=== PATIENT | male | born 1990 | race Caucasian/White ===

== ENCOUNTER 2018-01-10 02:45 | Emergency (ER) | payer BC ==
[2018-01-10] MEDS ORDERED: Ondansetron 4 MG/2 ML SDV IVPUSH STA (02:56)
[2018-01-10] MEDS ORDERED: Morphine 4 MG/ML Syringe IVPUSH ONE ×3 (02:56→05:27)
[2018-01-10 03:25] LABS: CHLORIDE,CL 86 mEq/L (98-106)
[2018-01-10] MEDS ORDERED: Sodium Chloride 0.9% 1,000 ML IV ONE (03:27)
[2018-01-10 03:31] LABS: SODIUM,NA 115 mEq/L (136-145)
[2018-01-10] MEDS ORDERED: Iopamidol 612 MG/ML 100 ML Bottle IVPUSH ONE (03:36)
--- NOTE | 2018-01-10 03:46 | EDM.PDOC ---
ED HPI GENERAL MEDICAL PROBLEM - General Chief Complaint: Abdominal Pain Stated Complaint: POSSIBLE PANCREATITIS Time Seen by Provider: 01/10/18 02:54 Source of Information: Reports: Patient, Family (Father) History Limitations: Reports: No Limitations - History of Present Illness INITIAL COMMENTS - FREE TEXT/NARRATIVE: This patient is a 27 year old male that presents to the ER. Patient is accompanied by father at bedside. The patient reports that he began having abdominal pain last night at about 6pm. He reports most of his pain is in the epigastric region, with some in the LLQ. The patient reports nausea, but no vomiting. Patient denies kasper, dizziness, v, d, f, cp, soa, urinary/bowel changes. Patient reports pain into his left back. Patient reports that he was admitted back in October for pancreatitis and also had Lipemia. The patient reports they were unable to discover causes. Patient reports he was admitted at [facility] in [place] for 3 days. The patient is alert and oriented. Does appear in pain and ill. Onset Date: 01/09/18 Onset Time: 18:00 Location: Reports: Abdomen Severity: Moderate Improves with: Reports: None Worsens with: Reports: None Associated Symptoms: Reports: Loss of Appetite, Nausea/Vomiting. Denies: Confusion, Chest Pain, Cough, cough w sputum, Diaphoresis, Fever/Chills, Headaches, Malaise, Rash, Seizure, Shortness of Breath, Syncope, Weakness Treatments [employer]: Reports: Acetaminophen Upper Abdominal Pain Score (Numeric/FACES): 7 - Related Data Allergies Allergy/AdvReac Type Severity Reaction Status Date / Time No Known Allergies Allergy Verified 01/10/18 02:50 Home Meds: Home Meds . [No Known Home Meds] 06/07/16 [History] Past Medical History HEENT History: Reports: Impaired Vision Other HEENT History: GLASSES Respiratory History: Reports: Bronchitis, Recurrent Gastrointestinal History: Reports: GERD, Pancreatitis Other Gastrointestinal History: OCTOBER 2017 HOSPITALIZED FOR 3 DAYS AT [facility] - Past Surgical History HEENT Surgical History: Reports: Oral Surgery, Tonsillectomy Social & Family History - Family History Family Medical History: Noncontributory - Tobacco Use Smoking Status *Q: Never Smoker - Caffeine Use Caffeine Use: Reports: Coffee - Recreational Drug Use Recreational Drug Use: No ED ROS GENERAL - Review of Systems Review Of Systems: See Below Constitutional: Reports: No Symptoms HEENT: Reports: No Symptoms Respiratory: Reports: No Symptoms Cardiovascular: Reports: No Symptoms Endocrine: Reports: No Symptoms GI/Abdominal: Reports: Abdominal Pain, Decreased Appetite, Nausea. Denies: Bloody Stool, Diarrhea, Vomiting : Reports: No Symptoms Musculoskeletal: Reports: No Symptoms Skin: Reports: No Symptoms Neurological: Reports: No Symptoms Psychiatric: Reports: No Symptoms Hematologic/Lymphatic: Reports: No Symptoms Immunologic: Reports: No Symptoms ED EXAM, GI/ABD - Physical Exam Exam: See Below Exam Limited By: No Limitations General Appearance: Alert, WD/WN, No Apparent Distress Eyes: Bilateral: Normal Appearance Ears: Normal External Exam, Normal Canal, Hearing Grossly Normal, Normal TMs Nose: Normal Inspection, Normal Mucosa, No Blood Throat/Mouth: Normal Inspection, Normal Lips, Normal Teeth, Normal Gums, Normal Oropharynx, Normal Voice, No Airway Compromise Head: Atraumatic, Normocephalic Neck: Normal Inspection, Supple, Non-Tender, Full Range of Motion Respiratory/Chest: No Respiratory Distress, Lungs Clear, Normal Breath Sounds, No Accessory Muscle Use Cardiovascular: Normal Peripheral Pulses, Regular Rate, Rhythm, No Edema, No Gallop, No JVD, No Murmur, No Rub GI/Abdominal Exam: Normal Bowel Sounds, Soft, No Organomegaly, No Distention, No Abnormal Bruit, No Mass, Pelvis Stable, Tender (Epigastric, LLQ. ). No: Rebound (Male) Exam: Deferred Rectal (Males) Exam: Deferred Back Exam: Normal Inspection, Full Range of Motion, CVA Tenderness (L). No: CVA Tenderness (R), Decreased Range of Motion, Muscle Spasm, Paraspinal Tenderness, Vertebral Tenderness Extremities: Normal Inspection, Normal Range of Motion, Non-Tender, No Pedal Edema, Normal Capillary Refill Neurological: Alert, Oriented, Normal Cognition, Normal Gait, No Motor/Sensory Deficits Psychiatric: Normal Affect, Normal Mood Skin Exam: Warm, Dry, Intact, Normal Color, No Rash Lymphatic: No Adenopathy Course - Vital Signs Last Recorded V/S: Last Vital Signs Temp 98.2 F 01/10/18 04:32 Pulse 82 01/10/18 04:32 Resp 18 01/10/18 04:32 BP 124/73 01/10/18 04:32 Pulse Ox 100 01/10/18 04:32 - Orders/Labs/Meds Orders: Active Orders 24 hr Category Date Time Status Abdomen Pelvis w Cont [CT] Stat Exams 01/10/18 03:29 Taken HIV 1,2 AB/AG COMBO SCREEN [REF] Stat Lab 01/10/18 03:35 Ordered URINALYSIS W/MICROSCOPIC [UA W/MICROSCOPIC] [URIN] Stat Lab 01/10/18 02:54 Ordered Ondansetron [Zofran] Med 01/10/18 05:27 Active 4 mg IVPUSH Q6H PRN Medication Orders Ondansetron HCl (Zofran) 4 mg IVPUSH Q6H PRN PRN Reason: Nausea/Vomiting Labs: Laboratory Tests 01/10/18 01/10/18 01/10/18 Range/Units 03:00 03:00 03:00 WBC 11.2 H (5.0-10.0) 10^3/uL RBC 3.80 L (4.50-6.00) 10^6/uL Hgb 15.8 (14.0-18.0) g/dL Hct 37.0 L (40.0-54.0) % MCV 97.4 H (82.0-94.0) fL MCH 41.6 H (27.0-32.0) pg MCHC 42.7 H (33.0-38.0) g/dL RDW Coeff of Williams 13.3 (11.0-15.0) % Plt Count 142 L (150-400) 10^3/uL Add Manual Diff Yes Neutrophils % (Manual) 61 (35-85) % Band Neutrophils % 9 H (0-5) % Lymphocytes % (Manual) 22 (21-55) % Monocytes % (Manual) 6 (2-12) % Myelocytes % 2 % Absolute Neutrophils 7.84 H (1.80-7.00) 10^3/uL Lymphocytes # (Manual) 2.46 (1.00-4.80) 10^3/uL Monocytes # (Manual) 0.67 (0.00-0.80) 10^3/uL ESR 37 H (0-15) mm/hr Sodium 115 L* (136-145) mEq/L Potassium 3.8 (3.5-5.0) mEq/L Chloride 86 L (98-106) mEq/L Carbon Dioxide 18 L (21-32) mmol/L BUN 15 (7-18) mg/dL Creatinine 1.3 (0.7-1.3) mg/dL Est Cr Clr Drug Dosing 91.15 mL/min Estimated GFR (MDRD) > 60 (>=60) mL/min Glucose 298 H D (75-99) mg/dL Calcium 3.0 L* (8.4-10.1) mg/dL Total Bilirubin 3.0 H (0.0-1.0) mg/dL AST -4 L (15-37) U/L ALT -17 L (12-78) U/L Alkaline Phosphatase 163 H (46-116) U/L C-Reactive Protein < 0.2 L (0.2-0.8) mg/dL Total Protein 6.9 (6.4-8.2) g/dL Albumin 2.4 L (3.4-5.0) g/dL Triglycerides (30-150) mg/dL Cholesterol (0-199) mg/dL LDL Cholesterol, Calc (0-99) mg/dL HDL Cholesterol (60-90) mg/dL Amylase 235 H (25-115) U/L 01/10/18 Range/Units 03:00 WBC (5.0-10.0) 10^3/uL RBC (4.50-6.00) 10^6/uL Hgb (14.0-18.0) g/dL Hct (40.0-54.0) % MCV (82.0-94.0) fL MCH (27.0-32.0) pg MCHC (33.0-38.0) g/dL RDW Coeff of Williams (11.0-15.0) % Plt Count (150-400) 10^3/uL Add Manual Diff Neutrophils % (Manual) (35-85) % Band Neutrophils % (0-5) % Lymphocytes % (Manual) (21-55) % Monocytes % (Manual) (2-12) % Myelocytes % % Absolute Neutrophils (1.80-7.00) 10^3/uL Lymphocytes # (Manual) (1.00-4.80) 10^3/uL Monocytes # (Manual) (0.00-0.80) 10^3/uL ESR (0-15) mm/hr Sodium (136-145) mEq/L Potassium (3.5-5.0) mEq/L Chloride (98-106) mEq/L Carbon Dioxide (21-32) mmol/L BUN (7-18) mg/dL Creatinine (0.7-1.3) mg/dL Est Cr Clr Drug Dosing mL/min Estimated GFR (MDRD) (>=60) mL/min Glucose (75-99) mg/dL Calcium (8.4-10.1) mg/dL Total Bilirubin (0.0-1.0) mg/dL AST (15-37) U/L ALT (12-78) U/L Alkaline Phosphatase (46-116) U/L C-Reactive Protein (0.2-0.8) mg/dL Total Protein (6.4-8.2) g/dL Albumin (3.4-5.0) g/dL Triglycerides 2601 H (30-150) mg/dL Cholesterol 429 H (0-199) mg/dL LDL Cholesterol, Calc -124 L (0-99) mg/dL HDL Cholesterol 33 L (60-90) mg/dL Amylase (25-115) U/L Meds: Medications Generic Name Dose Route Start Last Admin Trade Name Freq PRN Reason Stop Dose Admin Ondansetron HCl 4 mg 01/10/18 05:27 Zofran IVPUSH Q6H PRN Nausea/Vomiting Discontinued Medications Generic Name Dose Route Start Last Admin Trade Name Freq PRN Reason Stop Dose Admin Sodium Chloride 1,000 mls @ 1,000 mls/hr 01/10/18 03:27 01/10/18 04:02 Normal Saline IV 01/10/18 04:26 1,000 mls/hr .BOLUS ONE Administration Iopamidol 100 ml 01/10/18 03:36 01/10/18 03:56 Isovue-300 (61%) IVPUSH 01/10/18 03:37 100 ml ONETIME ONE Administration Morphine Sulfate 4 mg 01/10/18 02:56 01/10/18 03:21 Morphine IVPUSH 01/10/18 02:57 4 mg ONETIME ONE Administration Morphine Sulfate 4 mg 01/10/18 04:22 01/10/18 04:26 Morphine IVPUSH 01/10/18 04:23 4 mg ONETIME ONE Administration Morphine Sulfate 4 mg 01/10/18 05:27 Morphine IVPUSH 01/10/18 05:28 ONETIME ONE Ondansetron HCl 4 mg 01/10/18 02:56 01/10/18 03:18 Zofran IVPUSH 01/10/18 02:57 4 mg NOW STA Administration - Radiology Interpretation Free Text/Narrative:: CT Abd/Pelvis With Contrast: Severe fatty infiltration, acute pancreatitis. - Re-Assessments/Exams Free Text/Narrative Re-Assessment/Exam: 01/10/18 05:28 I have reviewed patient labs and ct results. Patient has acute pancreatitis and fatty liver infiltration. The patient underwent plasmapheresis in October at [facility] for the same issue of lyphemia. The patient has lyphemia with elevated triglycerides. Will transfer to [facility] for higher level of care.Dr. Michael hospitalist has accepted the patient. Departure - Departure Time of Disposition: 05:26 Disposition: DC/Tfer to Acute Hospital 02 Condition: Serious Clinical Impression: Fatty infiltration of liver Pancreatitis Qualifiers: Chronicity: acute Pancreatitis type: unspecified pancreatitis type Acute pancreatitis complication: unspecified Qualified Code(s): K85.90 - Acute pancreatitis without necrosis or infection, unspecified - Discharge Information Referrals: Provider,Unknown [Primary Care Provider] - Forms: ED Department Discharge Additional Instructions: Go to [facility] for admission Dr. Michael was the accepting physician - My Orders Last 24 Hours: My Active Orders 01/10/18 02:54 URINALYSIS W/MICROSCOPIC [UA W/MICROSCOPIC] [URIN] Stat 01/10/18 03:29 Abdomen Pelvis w Cont [CT] Stat 01/10/18 03:35 HIV 1,2 AB/AG COMBO SCREEN [REF] Stat 01/10/18 05:27 Ondansetron [Zofran] 4 mg IVPUSH Q6H PRN - Assessment/Plan Last 24 Hours: My Active Orders 01/10/18 02:54 URINALYSIS W/MICROSCOPIC [UA W/MICROSCOPIC] [URIN] Stat 01/10/18 03:29 Abdomen Pelvis w Cont [CT] Stat 01/10/18 03:35 HIV 1,2 AB/AG COMBO SCREEN [REF] Stat 01/10/18 05:27 Ondansetron [Zofran] 4 mg IVPUSH Q6H PRN Plan: PLEASE SEE RN NOTE FOR PFSH. The patient is being transferred to [facility] in [place]. Dr. Michael is the accepting hospitalist. The patient refuses ambulance transfer and would like to go private vehicle. His father will drive him. The risks of transfer are , mvc, worsening of condition, increase in pain, vomiting. The benefits of transfer are higher level of care, facility that can perform plasmapheresis, GI specialist. The risks of staying in [place] are , worsening of condition , no plasmapheresis. The benefits of staying in [place] are close to home. Patient and father aware of risks associated with transfer via private vehicle.
[2018-01-10] MEDS ORDERED: Ondansetron 4 MG/2 ML SDV IVPUSH PRN (05:27)
== END 2018-01-10 06:25 ==
LOC: CC.ED 02:45
DX: K85.90 Acute pancreatitis without necrosis or infection, unspecified (principal); K76.0 Fatty (change of) liver, not elsewhere classified; K21.9 Gastro-esophageal reflux disease without esophagitis
CPT/HCPCS: 36415; 74177; 80053; 80061-QW; 82150; 85025; 85651; 86140; 86703; 96361; 96374; 96375; 96376; 99285; J2270; J2405; J7030; Q9967